=== PATIENT | male | born 1975 | race African-American/Black ===

== ENCOUNTER 2016-11-15 10:43 | Emergency (ER) | payer BC ==
[~2016-11-15] VITALS: Ht 167.6 cm; Wt 78.0 kg
[2016-11-15] MEDS ORDERED: SODIUM CHLORIDE 0.9% 1,000 ML IV ONE (12:11)
[2016-11-15] MEDS ORDERED: FAMOTIDINE 20MG/2ML VIAL IV STA (12:11)
[2016-11-15] MEDS ORDERED: KETOROLAC 30MG/ML VIAL IV STA (12:11)
[2016-11-15] MEDS ORDERED: ONDANSETRON HCL 4MG/2ML VIAL IV STA (12:11)
[2016-11-15 12:27] LABS: BASOPHILS % 0.5 % (0.0-2.0); EOSINOPHILS % 0.7 % (0.0-5.0); HEMATOCRIT. 48.9 % (42.0-52.0); HEMOGLOBIN. 16.9 g/dL (14.0-18.0); LYMPHOCYTES % 16.8 % (20.0-50.0); MEAN CORPUSCULAR HEMOGLOBIN 31.8 pg (28.0-32.0); MEAN CORPUSCULAR VOLUME 91.8 fL (80.0-94.0); MEAN PLATELET VOLUME 8.2 fl (7.4-10.4); MONOCYTES % 10.1 % (2.0-8.0); NEUTROPHILS % 71.9 % (40.0-76.0); PLATELET 195 x1000/uL (130-400); RED BLOOD CELL COUNT 5.32 mill/uL (4.7-6.1); RED CELL DISTRIBUTION WIDTH 14.4 % (11.6-14.6)
[2016-11-15 12:34] LABS: CHLORIDE 93 mEq/L (98-107)
[2016-11-15 12:35] LABS: INR 1.1
[2016-11-15 12:39] LABS: CARBON DIOXIDE 33 mEq/L (21-32)
[2016-11-15 14:00] VITALS: BP 155/76
== END 2016-11-15 15:16 | disposition home or self-care (01) ==
LOC: ER 11:42
DX: R11.2 Nausea with vomiting, unspecified (principal); R07.9 Chest pain, unspecified; R42 Dizziness and giddiness; F12.10 Cannabis abuse, uncomplicated; F17.200 Nicotine dependence, unspecified, uncomplicated
CPT/HCPCS: 36415; 80053; 83690; 85025; 85610; 96361; 96374; 96375; 99284; J1885; J2405; J3490; J7030; Z7610

== ENCOUNTER 2021-04-03 10:47 | Emergency (ER) | payer BC, OTHER ==
[~2021-04-03] VITALS: Ht 165.1 cm; Wt 77.0 kg
[2021-04-03] MEDS ORDERED: IBUPROFEN 400MG TABLET PO ONE (11:30)
[2021-04-03] MEDS ORDERED: ACETAMINOPHEN 325MG TABLET PO ONE (11:30)
[2021-04-03 14:00] VITALS: BP 129/82
[2021-04-03] MEDS ORDERED: NAPR-1176 MT (14:45)
== END 2021-04-03 14:54 | disposition home or self-care (01) ==
LOC: ER 10:47
DX: S20.20XA Contusion of thorax, unspecified, initial encounter (principal); F12.10 Cannabis abuse, uncomplicated; Y04.0XXA Assault by unarmed brawl or fight, initial encounter; Y93.89 Activity, other specified; Y92.89 Other specified places as the place of occurrence of the external cause
CPT/HCPCS: 71101; 99283

== ENCOUNTER 2022-10-13 11:55 | Emergency (ER) | payer SELFPAY ==
[~2022-10-13] VITALS: Ht 172.7 cm; Wt 70.0 kg
[~2022-10-13 11:55] MED LIST: NAPR-1176 MT
[2022-10-13] MEDS ORDERED: METHYLPREDNISOLONE SOD SUCC 125 MG/2 ML VIAL IV ONE (12:15)
[2022-10-13] MEDS ORDERED: IPRATROPIUM/ALBUTEROL 0.5-3(2.5)MG/3ML NEB HHN ONE (12:15)
[2022-10-13] MEDS ORDERED: MAGNESIUM 2 G PREMIX 50 ML IV ONE (12:15)
[2022-10-13 12:21] LABS: HEMATOCRIT. 43.7 % (42.0-52.0); HEMOGLOBIN. 14.6 g/dL (14.0-18.0); MEAN CORPUSCULAR HEMOGLOBIN 31.5 pg (28.0-32.0); MEAN CORPUSCULAR VOLUME 93.9 fL (80.0-94.0); MEAN PLATELET VOLUME 8.5 fl (7.4-10.4); PLATELET 316 x1000/uL (130-400); RED BLOOD CELL COUNT 4.65 mill/uL (4.7-6.1); RED CELL DISTRIBUTION WIDTH 13.7 % (11.6-14.6)
[2022-10-13 12:22] LABS: CHLORIDE 105 mEq/L (98-107)
[2022-10-13 12:25] LABS: PROTHROMBIN TIME 10.4 sec (9.6-11.0)
[2022-10-13] MEDS ORDERED: ALBU6.7H3 INH (13:15)
[2022-10-13] MEDS ORDERED: P50 MT (13:15)
[2022-10-13 13:38] LABS: ATYPICAL LYMPHOCYTES 2
[2022-10-13 13:40] LABS: PLATELET ESTIMATE NORMAL
[2022-10-13 14:00] VITALS: BP 131/68
== END 2022-10-13 14:44 | disposition home or self-care (01) ==
LOC: ER 12:12
DX: J44.1 Chronic obstructive pulmonary disease with (acute) exacerbation (principal); F12.10 Cannabis abuse, uncomplicated; Z20.822 Contact with and (suspected) exposure to COVID-19
CPT/HCPCS: 36415; 71045; 80053; 83880; 84484; 85025; 85610; 87426; 93005; 94640; 96365; 96366; 96375; 99285; C9803; J2930; J3475; Z7610